=== PATIENT | male | born 1975 | race Caucasian/White ===

== ENCOUNTER 2021-01-15 20:00 | Emergency (ER) | payer SELFPAY ==
[~2021-01-15] VITALS: Ht 165.1 cm; Wt 82.0 kg
[2021-01-15 20:19] VITALS: BP 167/106
--- NOTE | 2021-01-15 23:30 | NUR ---
NA X 1
--- NOTE | 2021-01-16 00:09 | NUR ---
NA X 2
--- NOTE | 2021-01-16 00:51 | NUR ---
NA X 3
== END 2021-01-16 00:52 | disposition left against medical advice (07) ==
LOC: ED 22:00
DX: M54.5 Low back pain (principal)
CPT/HCPCS: 72110; 99283